=== PATIENT | female | born 1980 | race Caucasian/White ===

== ENCOUNTER 2020-01-03 06:52 | Inpatient (IN) | payer OTHER, SELFPAY ==
[2020-01-03] VITALS (52 sets, daily range): BP systolic 75–163; BP diastolic 35–102; PULSE 52–124; TEMP 35.8–37.6; O2SAT 93–100; BMI 36.8
[2020-01-03] MEDS: Lactated Ringers 1,000 ML 50 ML IV (07:45)
[2020-01-03 07:52] LABS: Absolute Neutrophil Count 9.2 X10^3/uL (2.0-7.7); Basophil# 0.03 X10^3/uL; Basophil% 0.2 % (0-1); Eosinophil# 0.31 X10^3/uL; Eosinophils% 2.3 % (0-5); Hematocrit 34.6 % (37-47); Hemoglobin 10.8 g/dL (12.0-15.0); Lymphocyte % 16.5 % (19-41); Mean Corp Hgb Conc 31.2 g/dL (32-36); Mean Corpuscular Hgb 25.9 pg (27.0-32.0); Mean Platelet Vol. 10.8 fl (6.2-12.0); Monocyte# 1.52 X10^3/uL; Monocyte% 11.4 % (0-10); NRBC Flagged by Analyzer 0.2 % (0-5); Neutrophil # 9.18 X10^3/uL (2.7-7.7); POSITIVE DIFFERENTIAL YES; Platelet Count 286 K/mm3 (150-450); RBC Distribution Width CV 14.6 % (11.6-14.6); RBC Distribution Width SD 42.9 fl (35.1-43.9); Red Blood Count 4.17 M/mm3 (4.2-5.4); White Blood Count 13.3 K/mm3 (4.4-11.0)
[2020-01-03 07:56] LABS: Differential Indicated SCAN CRITERIA MET
[2020-01-03] MEDS: Oxytocin 30 units/NS 500 ml 30 UNITS/500 ML IV.SOLN IV (08:19)
--- NOTE | 2020-01-03 09:07 | HP.PCM_ITS ---
History Date of Admission: 01/03/20 Final RUTH: 01/13/20 Final RUTH Source: US <20 weeks Gestational age: 38 Weeks and 4 Days History of this : This is a 39 year-old, G 5P3 @ 38.4 weeks- IOL for likely CHTN vs Gest HTN. denies RAMIRES, blurry vision or RUQ pain. Allergies Sulfa (Sulfonamide Antibiotics) Allergy (Verified 01/03/20 07:24) Rash Home Medications: Home Medications Famotidine [Pepcid] 20 mg PO DAILY 01/03/20 Prenatabs FA 1 tab PO DAILY 01/03/20 Smoking Status: Never smoker Alcohol: None Number of Fetus(es): 1 History Past Pregnancies: Past Pregnancies Delivery Date Name GA/ Weeks Outcome Route Wt Infant Sex Labor Length Anesthesia Delivery Location Provider FOB Expected Delivery Method: Spontaneous Vaginal Physical Exam Vitals: Vital Signs Temp Pulse BP Pulse Ox 97.4 F L 93 141/87 H 98 01/03/20 07:26 01/03/20 07:43 01/03/20 07:43 01/03/20 07:26 General: Alert, Oriented x3 Abdomen: Soft, Non-Distended, Gravid Neurological: Cranial nerves II-XII grossly intact [employer]: Normal external genitalia Estimated gestational size: Appropriate for gestational size Presentation: Cephalic Cervix Dilation (cm): 3.5 Station: -3 Effacement (%): 60 Assessment/Plan This is a 39 year-old, @ 38.4 wks- AMA, Gest htn vs chronic htn (undiagnosed) 1) admit to L&D 2) monitor vs 3) head was oblique in maternal left- gentle traction placed to get fetus in vertex position- abdominal binder placed to stabilize position 4) pitocin 5) PCN for gbs prophylaxis 6) epidural if requested for pain mgmt 7) anticipate
[2020-01-03] MEDS: Lactated Ringers 500 ML 999 ML IV ×3 (10:05→11:22)
[2020-01-03] MEDS: fentaNYL-bupivacaine (epidural) 100 ML BAG EPIDURAL (10:46)
[2020-01-03] MEDS: ePHEDrine Sulfate 50 MG/ML Ampul 10 MG IV (11:41)
--- NOTE | 2020-01-03 12:12 | PCM.PN.BLA ---
Progress Note called due to prolonged deceleration likely secondary to maternal hypotension after epidural. Pt was already in OR at my arrival- at this time FHR back up to 120s-140s. decision to monitor and return to Labor room. once stable and FHR remains category 1 will restart pitocin. VE: 60/-3. Unable to perform AROM at this time due to head being too high. continue to monitor VS- avoid maternal hypotension. will restart Pitocin when able. STROKE Vital Signs/Narrative: Vital Signs Temp Pulse BP Pulse Ox 01/03/20 11:52 77 104/50 L 01/03/20 11:49 64 121/65 H 01/03/20 11:48 70 99 01/03/20 11:47 53 L 75/36 L 01/03/20 11:43 52 L 100 01/03/20 11:41 77 89/41 L 01/03/20 11:38 83 99 01/03/20 11:36 79 89/43 L 01/03/20 11:33 63 80/35 L 99 01/03/20 11:32 66 94 01/03/20 11:29 72 93/50 L 01/03/20 11:27 76 100 01/03/20 11:22 83 94 01/03/20 11:21 84 94/46 L 99 01/03/20 11:18 66 91/46 L 01/03/20 11:12 56 L 93/54 L 01/03/20 11:08 72 99 01/03/20 11:03 59 L 98 01/03/20 11:02 98.4 F 101 H 123/53 H 01/03/20 10:58 124 H 100 01/03/20 10:56 108 H 142/79 H 01/03/20 10:53 93 100 01/03/20 10:48 105 H 100 01/03/20 10:43 101 H 100 01/03/20 10:31 96.4 F L 81 145/93 H 100 01/03/20 10:30 96.5 F L 01/03/20 09:13 96.4 F L 88 147/91 H 01/03/20 09:12 88 99
[2020-01-03] MEDS: Lactated Ringers 1,000 ML 200 ML IV (16:05)
--- NOTE | 2020-01-03 17:28 | PCM.PN.BLA ---
Progress Note VE performed. /2- AROM performed, scant clear fluid- IUPC and IFM placed. Continue pitocin. Anticipate STROKE Vital Signs/Narrative: Vital Signs Temp Pulse BP Pulse Ox 01/03/20 16:49 97.9 F 99 134/77 H 01/03/20 15:47 98.1 F 98 135/73 H 100 01/03/20 15:09 98.4 F 95 128/80 H 01/03/20 13:41 97.2 F L 90 112/65 100
[2020-01-03] MEDS: Oxytocin 30 units/NS 500 ml 30 UNITS/500 ML IV.SOLN 334 UNITS IV (20:53)
--- NOTE | 2020-01-03 20:58 | PCM.OPRPT ---
Vaginal Delivery Maternal Presentation: Medically Indicated Induction Method of Induction: Pitocin, Amniotomy Medical Reason for Induction: Gestational Hypertension Amniotic Membrane Rupture Type: Artificial Amniotic Fluid Description: Clear Final RUTH: 01/13/20 Gestational age: 38 Weeks and 4 Days Date of Procedure: 01/03/20 Pre-Operative Diagnosis: Gestational HTN, term gestation Post-Operative Diagnosis: same, live female infant Surgery/ Procedure Performed: Spontaneous Vaginal Delivery Type of Anesthesia: Epidural Description of Procedure: of a live female born without complication. One tight nuchal cord was clamped and cut prior to delivery of the infant's body. The head was delivered cord was clamped and cut and the rest the infant's body was delivered without complication with good maternal pushing efforts. The was placed on the mother's chest for immediate skin the skin. Placenta was then delivered intact without complication Presentation: Vertex Placental Delivery Description: Spontaneous Placenta Disposition: [facility] Cord Vessel Description: 3 Vessels Nuchal Cord Compression: Without compression Cord Entanglement: Around neck x 1, tight Estimated Blood Loss: 150 Infant A gender: Female (1 minute): 8 (5 minute): 9 Episiotomy Description: None Laceration: None Medications given after delivery: IV Pitocin Complications: None
[2020-01-04] VITALS (10 sets, daily range): BP systolic 126–148; BP diastolic 79–90; PULSE 82–94; RESP 14–16; TEMP 36.3–37.1
[2020-01-04] MEDS: Ibuprofen 600 MG Tablet PO ×2 (03:53→14:35)
[2020-01-04] MEDS: Acetaminophen 500 MG Tablet 1000 MG PO (08:11)
--- NOTE | 2020-01-04 08:53 | PCM.PN.OB ---
Subjective: pt seen at bedside, doing well. pt reports good pain control. lochia mild. breast feeding. voiding w/o difficulty. - Physical Exam Vitals/I&O's: Vital Signs Temp Pulse Resp BP Pulse Ox 97.9 F 82 16 136/79 H 98 01/04/20 08:15 01/04/20 08:15 01/04/20 03:54 01/04/20 08:15 01/03/20 20:24 Weight: 103.419 kg Body Mass Index (BMI) 36.8 Intake and Output for Last 24 Hours 01/02/20 01/03/20 01/04/20 23:59 23:59 23:59 Intake Total 4781.67 / 4781.67 Output Total 2750 / 2750 Balance 2030.67 / 2030. General: Alert, Oriented x3 Abdomen: Soft, Non Tender, Non-Distended, - - fundus firm Extremities: No Calf Tenderness Current Medications Acetaminophen (Tylenol) 1,000 mg PO Q8H PRN PRN PRN Reason: Pain Score 1-1010 Last Admin: 01/04/20 08:11 Dose: 1,000 mg Documented by: Bisacodyl (Dulcolax) 10 mg RECTAL UD PRN PRN Reason: If no BM Dibucaine (Dibucaine) 1 applic TOPICAL TID PRN PRN; Protocol PRN Reason: Discomfort Hydrocortisone (Hytone) 1 applic TOPICAL TID PRN PRN; Protocol PRN Reason: Discomfort Ibuprofen (Motrin) 600 mg PO Q6H PRN PRN PRN Reason: Pain Score 1-10/10 Last Admin: 01/04/20 03:53 Dose: 600 mg Documented by: Methylergonovine Maleate (Methergine) 0.2 mg IM X1 PRN PRN Reason: Excess bleeding/uterine atony Ondansetron HCl (Zofran) 4 mg IV Q4H PRN PRN PRN Reason: Nausea Senna/Docusate Sodium (Senokot-S, Gabi-Colace) 1 - 2 tablet PO DAILY PRN PRN PRN Reason: Constipation Simethicone (Mylicon) 80 mg PO PCHS PRN PRN Reason: Indigestion/Stomach pain Sodium Chloride () 5 - 15 ml IV UD PRN PRN Reason: SALINE FLUSH Medical Necessity - Tobacco Use Smoking Status: Never smoker Assessment/Plan PPD#1, doing well routine care pain mgmt monitor BPs- stable at this time
[2020-01-04] MEDS: Senna/Docusate Sodium 1 Tablet PO (11:49)
[2020-01-05 00:54] VITALS: TEMP 35.9
[2020-01-05 00:55] VITALS: BP 136/90; PULSE 69
[2020-01-05 01:00] VITALS: BP 136/90; PULSE 69; RESP 14; TEMP 36.4
[2020-01-05 08:11] VITALS: BP 139/82; PULSE 82; TEMP 36.1
[2020-01-05 08:12] VITALS: BP 139/82; PULSE 82; RESP 18; TEMP 36.1
--- NOTE | 2020-01-05 08:31 | PN.OBGYN_ITS ---
Subjective: pt seen at bedside doing well- pt reports mild lochia, voiding w/o difficulty. breast feeding. - Physical Exam Vitals/I&O's: Vital Signs Temp Pulse Resp BP Pulse Ox 97 F L 82 18 139/82 H 98 01/05/20 08:12 01/05/20 08:12 01/05/20 08:12 01/05/20 08:12 01/03/20 20:24 Oxygen Delivery Method Room Air Weight: 103.419 kg Body Mass Index (BMI) 36.8 Intake and Output for Last 24 Hours 01/03/20 01/04/20 01/05/20 23:59 23:59 23:59 Intake Total 4781.67 / 4781.67 Output Total 2750 / 2750 Balance 2030.67 / 2030. General: Alert, Oriented x3 Abdomen: - - fundus firm Extremities: No Calf Tenderness Current Medications Acetaminophen (Tylenol) 1,000 mg PO Q8H PRN PRN PRN Reason: Pain Score 1-06/06 Last Admin: 01/04/20 08:11 Dose: 1,000 mg Documented by: Bisacodyl (Dulcolax) 10 mg RECTAL UD PRN PRN Reason: If no BM Dibucaine (Dibucaine) 1 applic TOPICAL TID PRN PRN; Protocol PRN Reason: Discomfort Hydrocortisone (Hytone) 1 applic TOPICAL TID PRN PRN; Protocol PRN Reason: Discomfort Ibuprofen (Motrin) 600 mg PO Q6H PRN PRN PRN Reason: Pain Score 1-1010 Last Admin: 01/04/20 14:35 Dose: 600 mg Documented by: Methylergonovine Maleate (Methergine) 0.2 mg IM X1 PRN PRN Reason: Excess bleeding/uterine atony Ondansetron HCl (Zofran) 4 mg IV Q4H PRN PRN PRN Reason: Nausea Senna/Docusate Sodium (Senokot-S, Gabi-Colace) 1 - 2 tablet PO DAILY PRN PRN PRN Reason: Constipation Last Admin: 01/04/20 11:49 Dose: 1 tablet Documented by: Simethicone (Mylicon) 80 mg PO PCHS PRN PRN Reason: Indigestion/Stomach pain Sodium Chloride () 5 - 15 ml IV UD PRN PRN Reason: SALINE FLUSH Medical Necessity - Tobacco Use Smoking Status: Never smoker Assessment/Plan PPD#1, doing well BPs stable- s/sx of PP preeclampisa reviewed with patient- will follow up in office within in one week [facility]
--- NOTE | 2020-01-05 08:38 | DCINST_ITS ---
Discharge Diet: No Restrictions Discharge Activity: Return to Normal Activity, May not drive while taking narcotic pain medications., May Shower May resume sexual activity in: 4-6 weeks Additional Activity Instructions:: Nothing in the vagina for 4-6 weeks. You may return to work/school in 6 weeks. Call your doctor if your incision/area has: Continuous Slow Oozing, Sudden Increased Bleeding, Increased Pain/ Swelling, Increased Redness, Foul Smelling Discharge Additional Instructions: If you experience any of the following, contact your healthcare provider. * Bleeding that soaks a pad every hour for 2 hours * Fever 100.4 or higher * Unrelieved incision or abdominal pain * Swelling, redness, discharge or bleeding from your incision or episiotomy site * Your incision begins to separate * Problems urinating (including inability to urinate or burning while urinating). * Visual changes * Severe headache * Flu-like symptoms * Pain or redness in one of both of your breasts * Pain, warmth, tenderness or swelling in your legs, especially the calf area * Frequent nausea and vomiting * Symptoms of depression or anxiety If you experience any of the following, call 911 or go to the nearest Emergency Room. * Chest pain * Problems breathing * Seizure activity * Partial or complete paralysis of a body part, slurred speech, weakness or drooping of the face, or a sudden inability to walk or hold your balance Allergies/Adverse Reactions: Allergies Sulfa (Sulfonamide Antibiotics) Allergy (Verified 01/03/20 07:24) Rash Medications to take at Discharge Famotidine [Pepcid] 20 mg PO DAILY 01/03/20 Prenatabs FA 1 tab PO DAILY 01/03/20 Ibuprofen [Motrin] 600 mg PO Q6H PRN PRN #60 tab 01/05/20 The following prescriptions were given: Ibuprofen [Motrin] 600 mg PO Q6H PRN PRN #60 tab PRN Reason: Pain Score 1-10/10 Transmission Status: Pending to [facility]/pharmacy #[id number] When: Call to make an appointment with your doctor in 6 weeks. If you had elevated Blood Pressure or 4th degree laceration you will need to be seen in 2 weeks. Primary Care Physician: Care Physician,No Primary [Primary Care Provider] - Test Results: Test results from this visit will be discussed in further detail at your follow- up appointment, if applicable.
[2020-01-06 11:25] LABS: Pathologist Review Reviewed
== END 2020-01-05 09:00 | disposition home or self-care (01) | DRG 807 ==
PROVIDERS: Admitting Provider Obstetrics & Gynecology; Referring Provider Obstetrics & Gynecology; Visit Provider Obstetrics & Gynecology
DX: O13.4 Gestational [pregnancy-induced] hypertension without significant proteinuria, complicating childbirth (principal); Z37.0 Single live birth; Z3A.38 38 weeks gestation of pregnancy; O76 Abnormality in fetal heart rate and rhythm complicating labor and delivery; I95.2 Hypotension due to drugs; T41.3X5A Adverse effect of local anesthetics, initial encounter; O9A.22 Injury, poisoning and certain other consequences of external causes complicating childbirth; O69.1XX0 Labor and delivery complicated by cord around neck, with compression, not applicable or unspecified
CPT/HCPCS: 59025; 59050; 76815; 85025; 86850; 86900; 86901; 99218; J7120; G0378